=== PATIENT | male | born 1990 | race African-American/Black ===

== ENCOUNTER 2021-03-15 18:23 | Emergency (ER) | payer MEDICAID, OTHER ==
[~2021-03-15] VITALS: Ht 185.4 cm; Wt 108.9 kg
[2021-03-15] MEDS ORDERED: ACETAMINOPHEN 500 MG TAB PO ONE ×2 (18:45)
[2021-03-15 21:44] LABS: Basophils # (auto) 0 10 ^3/uL (0-0.2); Basophils % (auto) 0.2 % (0.0-2.0); Eosinophils # (auto) 0 10 ^3/uL (0-0.8); Hematocrit 43.4 % (41.0-53.0); Hemoglobin 15.1 g/dL (13.5-17.5); Lymphocytes # (auto) 1.1 10 ^3/uL (0.4-5.4); Lymphocytes % (auto) 20.1 % (10.0-50.0); Mean Corpuscular Hemoglobin 30.4 pg (28.0-32.0); Mean Corpuscular Hgb Conc. 34.7 g/dL (32.0-36.0); Mean Corpuscular Volume 87.7 fL (80.0-100.0); Monocytes # (auto) 0.5 10 ^3/uL (0-1.3); Monocytes % (auto) 8.8 % (0.0-12.0); Neutrophils % (auto) 70.9 % (37.0-80.0); Nucleated Red Blood Cells % 0.1 %; Red Blood Cells 4.95 10^6/uL (4.5-5.90); Red Cell Distribution Width 13.5 % (11.8-14.3); White Blood Cell 5.6 10^3/uL (4.4-10.8)
[2021-03-15 22:13] LABS: Calcium 8.5 mg/dL (8.5-10.1); Potassium 3.8 mmol/L (3.5-5.1)
[2021-03-15 22:19] LABS: Albumin 3.2 g/dL (3.4-5.0); BUN/Creatinine Ratio 10.8; Bilirubin, Total 0.5 mg/dL (0.2-1.0); Total Protein 7.8 g/dL (6.4-8.2)
[2021-03-15 22:22] LABS: Magnesium 2.6 mg/dL (1.6-2.6)
[2021-03-15 23:01] VITALS: BP 119/70
== END 2021-03-15 23:25 | disposition home or self-care (01) ==
LOC: ER 18:24
DX: J18.9 Pneumonia, unspecified organism (principal); Z20.822 Contact with and (suspected) exposure to COVID-19
CPT/HCPCS: 36415; 71046; 80053; 82728; 83615; 83735; 84484; 85025; 87040; 87426; 93005

== ENCOUNTER 2023-12-05 17:12 | Emergency (ER) | payer MEDICAID ==
[~2023-12-05] VITALS: Ht 185.4 cm; Wt 124.1 kg
[2023-12-05 18:31] LABS: Basophils # (auto) 0 10 ^3/uL (0-0.2); Basophils % (auto) 0.5 % (0.0-2.0); Eosinophils # (auto) 0.2 10 ^3/uL (0-0.8); Eosinophils % (auto) 2.7 % (0.0-7.0); Hematocrit 44.9 % (41.0-53.0); Hemoglobin 15.3 g/dL (13.5-17.5); Lymphocytes # (auto) 2.9 10 ^3/uL (0.4-5.4); Lymphocytes % (auto) 45.3 % (10.0-50.0); Mean Corpuscular Hemoglobin 30.2 pg (28.0-32.0); Mean Corpuscular Hgb Conc. 33.9 g/dL (32.0-36.0); Monocytes # (auto) 0.5 10 ^3/uL (0-1.3); Monocytes % (auto) 7.8 % (0.0-12.0); Neutrophils # (auto) 2.8 10 ^3/uL (1.6-8.6); Neutrophils % (auto) 43.7 % (37.0-80.0); Nucleated Red Blood Cells % 0.1 %; Red Blood Cells 5.05 10^6/uL (4.5-5.90); White Blood Cell 6.3 10^3/uL (4.4-10.8)
[2023-12-05 18:37] LABS: Urine Bacteria FEW /hpf (None Seen); Urine Blood Negative /uL (Negative); Urine Clarity Clear (Clear); Urine Color Light-Yellow (Yellow); Urine Protein, UAD Negative (Negative); Urine Specific Gravity 1.021 (1.001-1.035); Urine Urobilinogen Normal (Negative); Urine WBC 4 /hpf (0 - 3); Urine pH 6.5 (5.0-9.0)
[2023-12-05 18:42] LABS: Alanine Aminotransferase 23 U/L (7-40); Albumin 4.4 g/dL (3.2-4.8); Alkaline Phosphatase 100 U/L (46-116); Anion Gap 4 (5-15); Aspartate Aminotransferase 16 U/L (13-40); BUN/Creatinine Ratio 11.7 (10.0-20.0); Blood Urea Nitrogen 11 mg/dL (9-23); Calcium 9.8 mg/dL (8.7-10.4); Carbon Dioxide 29 mmol/L (20-30); Chloride 108 mmol/L (98-107); Glucose 100 mg/dL (74-106); Potassium 4.1 mmol/L (3.5-5.1); Sodium 141 mmol/L (136-145)
[2023-12-05 18:43] LABS: Bilirubin, Total 0.6 mg/dL (0.2-1.0); Total Protein 7.2 g/dL (5.7-8.2)
[2023-12-05 21:49] LABS: Magnesium 1.9 mg/dL (1.6-2.6)
[2023-12-05 21:51] VITALS: BP 142/83; PULSE 70; RESP 20; TEMP 98.6; O2SAT 100
[2023-12-05] MEDS: LOPERAMIDE HCL 2 MG CAP/TAB PO ONE (21:57)
[2023-12-05] MEDS: PANTOPRAZOLE 40 MG/10 ML VIAL INJ IV ONE (21:58)
[2023-12-05] MEDS: ONDANSETRON HCL 4 MG/2 ML VIAL IV ONE (21:58)
[2023-12-05] MEDS: SODIUM CHLORIDE 0.9% 1,000 ML IVB ONE (21:58)
[2023-12-05 22:17] LABS: Blood Alcohol 8.1 mg/dL (<10)
[2023-12-05] MEDS ORDERED: ZOFR4T PO (22:30)
== END 2023-12-05 22:49 | disposition home or self-care (01) ==
LOC: ER 17:12
DX: R11.2 Nausea with vomiting, unspecified (principal); R19.7 Diarrhea, unspecified
CPT/HCPCS: 36415; 80053; 80320; 81001; 83690; 83735; 85025; 96361; 96374; 96375; 99284; C9113; J2405; J7030